=== PATIENT | male | born 1970 | race Two or more races ===

== ENCOUNTER 2020-12-06 09:37 | Outpatient (CLI) | payer OTHER | END 2020-12-06 09:55 | disposition home or self-care (01) | LOC: NUCLEAR 09:37 | PROVIDERS: ATTEND Internal Medicine | DX: I11.9 Hypertensive heart disease without heart failure (principal); R06.09 Other forms of dyspnea ==

== ENCOUNTER 2021-04-04 23:54 | Outpatient (CLI) | payer OTHER | END 2021-04-04 23:55 | disposition home or self-care (01) | LOC: PPH VACUNA 23:54 | DX: Z23 Encounter for immunization (principal) ==